=== PATIENT | female | born 1980 | race American Indian/Alaskan Native ===

== ENCOUNTER 2017-10-12 11:39 | Emergency (ER) | payer OTHER ==
[2017-10-12 12:02] VITALS: BP 123/83
[2017-10-12] MEDS ORDERED: MOTRIN PO ONE (12:02)
[2017-10-12] MEDS ORDERED: TYLENOL PO ONE (14:45)
[2017-10-12] MEDS ORDERED: FLEXERIL PO ONE (14:45)
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
[2017-10-12] MEDS ORDERED: NORCO 5/325 PO ONE (16:24)
[2017-10-12 16:29] LABS: Bacteria,Urine 1+ /HPF (Negative); Bilirubin,Urine NEG (Negative); Blood,Urine NEG (Negative); Ketones,Urine TR mg/dL (Negative); Leukocyte Esterase,Urine NEG (Negative); Mucus,Urine FEW /HPF; Nitrite,Urine NEG (Negative)
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
== END 2017-10-12 19:00 | disposition home or self-care (01) ==
LOC: ED 11:39
DX: M54.6 Pain in thoracic spine (principal); V49.59XA Passenger injured in collision with other motor vehicles in traffic accident, initial encounter; Y93.89 Activity, other specified; Y92.89 Other specified places as the place of occurrence of the external cause; Y99.8 Other external cause status
CPT/HCPCS: 72125; 72128; 81001; 81025

== ENCOUNTER 2019-08-29 23:09 | Emergency (ER) | payer SELFPAY ==
[2019-08-30 00:08] VITALS: BP 125/78
[2019-08-30] MEDS ORDERED: KETOROLAC 30 MG/1 ML INJ IM ONE (01:22)
[2019-08-30] MEDS ORDERED: dexAMETHasone 20 MG/5 ML VIAL IM ONE (01:22)
[2019-08-30 02:06] LABS: Bilirubin,Urine NEG (Negative); Blood,Urine NEG (Negative); Color,Urine Yellow (Yellow); Hyaline Casts,Urine 1 /LPF; Protein,Urine <15 mg/dL mg/dL (Negative); WBC,Urine < 1.0 /HPF (0.0-6.0)
[2019-08-30 02:07] LABS: HCG Qualitative,Urine Negative (Negative)
--- NOTE | 2019-08-30 02:30 | Emergency Department Report ---
ED General Adult HPI - General Chief complaint: Abdominal Pain Stated complaint: FLANK PAIN Source: patient Mode of arrival: Ambulatory Limitations: No Limitations - History of Present Illness Initial comments: Patient is a 38-year-old -[place]ian male female with no past medical history who presents to the ED with complaint of acute onset persistent right- sided pleuritic chest pain for the last 2 days. Patient states that the pain is worse with any movement or palpation of the chest or inhalation. Patient states that she has a history of chronic costochondritis and that her current symptoms are similar to the previous symptoms she felt when she had costochondritis. Patient states that she performs heavy lifting at work and that this may have also contributed her pain. Patient however admits that she smokes cigarettes and was also worried that she might be having pneumonia. Patient denies dizziness, shortness of breath, fever, chills, diaphoresis, headache, cough, sore throat, nasal and sinus congestion, hematuria, dysuria, traumatic injury, hematuria or fall. MD Complaint: right sided pleuritic chest wall pain; muscle strain of chest -: Sudden, days(s) (2) Location: chest Radiation: back Severity scale (0 -10): 7 Quality: aching, sharp, constant Consistency: constant Improves with: none Worsens with: none Associated Symptoms: denies other symptoms, chest pain. denies: confusion, cough, diaphoresis, fever/chills, headaches, loss of appetite, malaise, nausea/vomiting, seizure, shortness of breath, syncope, weakness - Related Data Previous Rx's Medication Instructions Recorded Last Taken Type HYDROcodone/APAP 5-325 [[place] 1 each PO Q6HR PRN #10 tablet 09/08/14 Unknown Rx 5/325] Ibuprofen [Motrin 800 MG tab] 800 mg PO Q8H #30 tablet 09/08/14 Unknown Rx HYDROcodone/APAP 5-325 [[place] 1 each PO Q6HR PRN #12 tablet 03/31/15 Unknown Rx 5/325] Sulfamethoxazole/Trimethoprim 1 each PO Q12H #14 tablet 03/31/15 Unknown Rx [Bactrim Ds] Cyclobenzaprine [Flexeril] 10 mg PO TID PRN #12 tablet 10/12/17 Unknown Rx Ibuprofen [Motrin] 600 mg PO Q8H PRN #30 tablet 11/23/17 Unknown Rx Cyclobenzaprine [Flexeril] 10 mg PO Q8H PRN #15 tablet 08/30/19 Unknown Rx Naproxen 500 mg PO Q12H PRN #24 tablet 08/30/19 Unknown Rx Allergies Allergy/AdvReac Type Severity Reaction Status Date / Time No Known Allergies Allergy Verified 10/12/17 11:51 ED Review of Systems ROS: Stated complaint: FLANK PAIN Other details as noted in HPI Constitutional: denies: chills, fever Eyes: denies: eye pain, eye discharge, vision change ENT: denies: ear pain, throat pain Respiratory: denies: cough, shortness of breath, SOB with exertion, wheezing Cardiovascular: chest pain (right sided chest pleuritic chest wall pain). denies: palpitations, dyspnea on exertion, syncope, paroxysmal nocturnal dyspnea Endocrine: no symptoms reported Gastrointestinal: denies: abdominal pain, nausea, diarrhea Genitourinary: denies: urgency, dysuria, frequency, hematuria, discharge Musculoskeletal: denies: back pain, joint swelling, arthralgia Skin: denies: rash, lesions Neurological: denies: headache, weakness, paresthesias Psychiatric: denies: anxiety, depression Hematological/Lymphatic: denies: easy bleeding, easy bruising ED Past Medical Hx - Past Medical History Previous Medical History?: Yes Additional medical history: cyclic vomiting syndrome - Surgical History Past Surgical History?: Yes Additional Surgical History: - Social History Smoking Status: Current Every Day Smoker Substance Use Type: Alcohol, Marijuana - Medications Home Medications: Home Medications Medication Instructions Recorded Confirmed Last Taken Type HYDROcodone/APAP 5-325 [[place] 1 each PO Q6HR PRN #10 tablet 09/08/14 Unknown Rx 5/325] Ibuprofen [Motrin 800 MG tab] 800 mg PO Q8H #30 tablet 09/08/14 Unknown Rx HYDROcodone/APAP 5-325 [[place] 1 each PO Q6HR PRN #12 tablet 03/31/15 Unknown Rx 5/325] Sulfamethoxazole/Trimethoprim 1 each PO Q12H #14 tablet 03/31/15 Unknown Rx [Bactrim Ds] Cyclobenzaprine [Flexeril] 10 mg PO TID PRN #12 tablet 10/12/17 Unknown Rx Ibuprofen [Motrin] 600 mg PO Q8H PRN #30 tablet 10/12/17 Unknown Rx Cyclobenzaprine [Flexeril] 10 mg PO Q8H PRN #15 tablet 08/30/19 Unknown Rx Naproxen 500 mg PO Q12H PRN #24 tablet 08/30/19 Unknown Rx ED Physical Exam - General Limitations: No Limitations General appearance: alert, in no apparent distress - Head Head exam: Present: atraumatic, normocephalic - Eye Eye exam: Present: normal appearance, PERRL, EOMI. Absent: scleral icterus, conjunctival injection, nystagmus, periorbital swelling, periorbital tenderness - ENT ENT exam: Present: normal exam, normal orophraynx, mucous membranes moist, TM's normal bilaterally, normal external ear exam - Neck Neck exam: Present: normal inspection, full ROM. Absent: tenderness, lymphadenopathy - Respiratory Respiratory exam: Present: normal lung sounds bilaterally, chest wall tenderness (palpable right-sided chest wall tenderness including right posterior thoracic paraspinal area). Absent: respiratory distress, wheezes, rales, accessory muscle use, decreased breath sounds - Cardiovascular Cardiovascular Exam: Present: regular rate, normal rhythm, normal heart sounds. Absent: systolic murmur, diastolic murmur, rubs, gallop - GI/Abdominal GI/Abdominal exam: Present: soft, normal bowel sounds. Absent: tenderness, guarding, hyperactive bowel sounds, hypoactive bowel sounds, organomegaly - Extremities Exam Extremities exam: Present: normal inspection, full ROM, normal capillary refill - Back Exam Back exam: Present: normal inspection, full ROM. Absent: tenderness, CVA tenderness (L), muscle spasm, paraspinal tenderness - Neurological Exam Neurological exam: Present: alert, oriented X3, CN II-XII intact, normal gait, reflexes normal - Psychiatric Psychiatric exam: Present: normal affect, normal mood - Skin Skin exam: Present: warm, dry, intact, normal color. Absent: rash ED Course Vital Signs 08/30/19 00:07 Temperature 98 F Pulse Rate 75 Respiratory 16 Rate Blood Pressure 125/78 [Right] O2 Sat by Pulse 95 Oximetry - Reevaluation(s) Reevaluation #1: 08/30/19 02:59 This is a 38-year-old female who presented to the ED with pleuritic right-sided chest wall pain related to the posterior mid thoracic area. In the ED, patient is alert and oriented 3 and is not in distress. Patient was treated for pain in the ED. Chest x-ray shows no acute cardiopulmonary abnormalities or pneumonitis. On reevaluation, patient's pain is well controlled with medications. Patient was discharged home on pain medications principally anti- inflammatory pain medications with muscle relaxants, and advised to follow-up with her primary care physician in 7-10 days for reevaluation or return to the ED immediately if symptoms get worse. ED Medical Decision Making - Radiology Data Radiology results: report reviewed, image reviewed Chest x-ray shows no acute cardiopulmonary abnormalities or pneumonitis - Medical Decision Making This is a 38-year-old female who presented to the ED with pleuritic right-sided chest wall pain related to the posterior mid thoracic area. In the ED, patient is alert and oriented 3 and is not in distress. Patient was treated for pain in the ED. Chest x-ray shows no acute cardiopulmonary abnormalities or pneumonitis. Urinalysis is unremarkable. On reevaluation, patient's pain is well controlled with medications. Patient was discharged home on pain medications principally anti-inflammatory pain medications with muscle relaxants, and advised to follow-up with her primary care physician in 7-10 days for reevaluation or return to the ED immediately if symptoms get worse. - Differential Diagnosis pleuritic chest wal pain; acute costochondritis; muscle strain of chest Critical care attestation.: If time is entered above; I have spent that time in minutes in the direct care of this critically ill patient, excluding procedure time. ED Disposition Clinical Impression: Acute costochondritis Muscle strain of chest wall Qualifiers: Encounter type: initial encounter Qualified Code(s): S29.011A - Strain of muscle and tendon of front wall of thorax, initial encounter Disposition: TO HOME OR SELFCARE Is pt being admited?: No Does the pt Need Aspirin: No Condition: Stable Instructions: Muscle Strain (ED), Costochondritis (ED) Additional Instructions: Take medication with food, drink plenty of fluids and follow-up with your primary care physician in 7-10 days for reevaluation. Return to the ED immediately if symptoms get worse. Prescriptions: Cyclobenzaprine [Flexeril] 10 mg PO Q8H PRN #15 tablet PRN Reason: Muscle Spasm Naproxen 500 mg PO Q12H PRN #24 tablet PRN Reason: Pain , Severe (7-10) Referrals: PRIMARY CARE, [Primary Care Provider] - 3-5 Days Forms: Work/School Release Form(ED) Time of Disposition: 03:02 Print Language: CYMRAES
--- NOTE | 2019-08-30 02:40 | XRay Report ---
CHEST 2 VIEWS INDICATION / CLINICAL INFORMATION: pleuritic right sided chest pain. COMPARISON: None available. FINDINGS: SUPPORT DEVICES: None. HEART / MEDIASTINUM: No significant abnormality. LUNGS / PLEURA: No significant pulmonary or pleural abnormality. No pneumothorax. ADDITIONAL FINDINGS: No significant additional findings. IMPRESSION: 1. No acute findings. Signer Name: Cecelia Valverde MD Signed: 08/30/2019 2:36 AM Workstation Name: [id number]
== END 2019-08-30 03:39 | disposition home or self-care (01) ==
LOC: ED 23:09
DX: S29.011A Strain of muscle and tendon of front wall of thorax, initial encounter (principal); M94.0 Chondrocostal junction syndrome [Tietze]; F17.200 Nicotine dependence, unspecified, uncomplicated; F12.10 Cannabis abuse, uncomplicated; Z79.899 Other long term (current) drug therapy; Z79.1 Long term (current) use of non-steroidal anti-inflammatories (NSAID); X50.0XXA Overexertion from strenuous movement or load, initial encounter; Y93.89 Activity, other specified; Y92.69 Other specified industrial and construction area as the place of occurrence of the external cause; Y99.8 Other external cause status
CPT/HCPCS: 71046; 81001; 81025; 96372; 99283; J1100; J1885